=== PATIENT | female | born 1960 | race Caucasian/White ===

== ENCOUNTER 2022-10-11 14:48 | Emergency (ER) | payer SELFPAY ==
[~2022-10-11] VITALS: Ht 160 cm; Wt 87.0 kg
[2022-10-11] MEDS ORDERED: ACETAMINOPHEN 325MG TABLET PO ONE (18:45)
[2022-10-11] MEDS ORDERED: IBUPROFEN 400MG TABLET PO ONE (18:45)
[2022-10-11 18:46] VITALS: BP 162/93
[2022-10-11] MEDS ORDERED: IBUP-2028 MT (19:51)
== END 2022-10-11 20:19 | disposition home or self-care (01) ==
LOC: ER 14:48
DX: M25.562 Pain in left knee (principal); I10 Essential (primary) hypertension
CPT/HCPCS: 73560; 99283